=== PATIENT | female | born 1975 | race Caucasian/White ===

== ENCOUNTER → 2016-05-12 | Outpatient (CLI) | payer BC ==
--- NOTE | 2016-05-13 07:22 | US ---
EXAMINATION TYPE: US transvaginal DATE OF EXAM: 05/12/2016 4:30 PM COMPARISON: 03/27/2016 CLINICAL HISTORY: N83.20 Prev L Ovarian Cyst. 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 Uterus: Anteverted Heterogeneous 2. Endometrium: wnl 3. Right Ovary: Probable functional ovarian cyst 1.3 x 0.5 x 1.5 cm 4. Left Ovary: wnl, previous cyst resolved 5. Bilateral Adnexa: wnl 6. Posterior cul-de-sac: wnl IMPRESSION: 1. Resolution of previously noted left ovarian cyst. 2. Probable functional right ovarian cyst as noted.
== END | disposition home or self-care (01) ==
LOC: RADUSWWP 16:15
PROVIDERS: ATTEND Obstetrics & Gynecology
DX: N83.202 Unspecified ovarian cyst, left side (principal)
CPT/HCPCS: 76830

== ENCOUNTER → 2018-04-05 | Outpatient (CLI) | payer BC ==
--- NOTE | 2018-04-05 13:12 | MM ---
Reason for exam: screening (asymptomatic). Last mammogram was performed 2 years ago. History: Taking hormonal contraceptives for 3 years beginning at age 40. Physical Findings: A clinical breast exam by your physician is recommended on an annual basis and results should be correlated with mammographic findings. MG 3D Screening Mammo W/Cad Bilateral CC and MLO view(s) were taken. Prior study comparison: April 17, 2016, bilateral MG screening mammo w CAD. March 05, 2015, bilateral MG screening mammo w CAD. The breast tissue is extremely dense which could obscure a lesion on mammography. Finding: There are typically benign circumscribed round circumscribed stable low density masses in both breasts. No suspicious abnormality. No significant changes in finding since April 17, 2016 and March 05, 2015. ASSESSMENT: Benign, BI-RAD 2 RECOMMENDATION: Routine screening mammogram of both breasts in 1 year.
== END | disposition home or self-care (01) ==
LOC: RADMAMWWP 09:15
PROVIDERS: ATTEND Obstetrics & Gynecology
DX: Z12.31 Encounter for screening mammogram for malignant neoplasm of breast (principal)
CPT/HCPCS: 77063; 77067

== ENCOUNTER → 2019-10-12 | Outpatient (CLI) | payer BC ==
--- NOTE | 2019-10-13 13:32 | MM ---
Reason for exam: screening (asymptomatic). Last mammogram was performed 1 year and 6 months ago. History: Taking hormonal contraceptives for 3 years beginning at age 40. Physical Findings: A clinical breast exam by your physician is recommended on an annual basis and results should be correlated with mammographic findings. MG 3D Screening Mammo W/Cad Bilateral CC and MLO view(s) were taken. Prior study comparison: April 05, 2018, bilateral MG 3d screening mammo w/cad. April 17, 2016, bilateral MG screening mammo w CAD. The breast tissue is extremely dense which could obscure a lesion on mammography. No significant changes when compared with prior studies. ASSESSMENT: Benign, BI-RAD 2 RECOMMENDATION: Routine screening mammogram of both breasts in 1 year.
== END | disposition home or self-care (01) ==
LOC: RADMAMWWP 10:55
PROVIDERS: ATTEND Obstetrics & Gynecology
DX: Z12.31 Encounter for screening mammogram for malignant neoplasm of breast (principal)
CPT/HCPCS: 77063; 77067

== ENCOUNTER → 2021-01-27 | Outpatient (CLI) | payer BC ==
--- NOTE | 2021-01-28 11:41 | MM ---
Reason for exam: screening (asymptomatic). Last mammogram was performed 1 year and 4 months ago. History: Took hormonal contraceptives for 5 years beginning at age 40. Physical Findings: A clinical breast exam by your physician is recommended on an annual basis and results should be correlated with mammographic findings. MG 3D Screening Mammo W/Cad Bilateral CC and MLO view(s) were taken. Prior study comparison: October 12, 2019, bilateral MG 3d screening mammo w/cad. April 05, 2018, bilateral MG 3d screening mammo w/cad. April 17, 2016, bilateral MG screening mammo w CAD. The breast tissue is heterogeneously dense. This may lower the sensitivity of mammography. There is no discrete abnormality. ASSESSMENT: Negative, BI-RAD 1 RECOMMENDATION: Routine screening mammogram of both breasts in 1 year.
== END | disposition home or self-care (01) ==
LOC: RADMAMWWP 10:53
PROVIDERS: ATTEND Obstetrics & Gynecology
DX: Z12.31 Encounter for screening mammogram for malignant neoplasm of breast (principal)
CPT/HCPCS: 77063; 77067

== ENCOUNTER 2021-03-08 14:47 | Emergency (ER) | payer BC ==
[2021-03-08 15:48] VITALS: RESP 20
[2021-03-08] MEDS ORDERED: SODIUM CHLORIDE 0.9% 1,000 ML IV STA (16:07)
[2021-03-08] MEDS ORDERED: ACETAMINOPHEN TAB 500 MG TAB PO STA (16:07)
--- NOTE | 2021-03-08 16:11 | ED ---
General Adult HPI - General Chief complaint: Upper Respiratory Infection Stated complaint: COVID-19 infection Time Seen by Provider: 03/08/21 15:54 Source: patient, RN notes reviewed Mode of arrival: ambulatory Limitations: no limitations - History of Present Illness Initial comments: Patient is a pleasant 45-year-old female presenting to the emergency department with COVID-19 infection. Patient did have symptoms for one week now. Patient had positive test Wednesday and Wednesday of this week. Patient has extreme fatigue. Mild cough. Patient has congestion. Loss of taste loss of smell. Decreased appetite. No nausea or vomiting or diarrhea. No dyspnea. No history of chronic lung problems. - Related Data Allergies Allergy/AdvReac Type Severity Reaction Status Date / Time Sulfa (Sulfonamide Allergy Unknown Verified 03/08/21 15:49 Antibiotics) Review of Systems ROS Statement: Those systems with pertinent positive or pertinent negative responses have been documented in the HPI. ROS Other: All systems not noted in ROS Statement are negative. Constitutional: Reports: fever, chills Eyes: Denies: eye pain ENT: Denies: ear pain Respiratory: Reports: cough Cardiovascular: Denies: chest pain Endocrine: Denies: fatigue Gastrointestinal: Denies: abdominal pain Genitourinary: Denies: dysuria Musculoskeletal: Denies: back pain Skin: Denies: rash Neurological: Denies: weakness Past Medical History Past Medical History: Hypertension, Thyroid Disorder History of Any Multi-Drug Resistant Organisms: None Reported Past Surgical History: Section, Tonsillectomy Past Psychological History: No Psychological Hx Reported Smoking Status: Never smoker Past Alcohol Use History: None Reported Past Drug Use History: None Reported General Exam Limitations: no limitations General appearance: alert, in no apparent distress Head exam: Present: normocephalic Eye exam: Present: normal appearance Respiratory exam: Present: normal lung sounds bilaterally Cardiovascular Exam: Present: tachycardia GI/Abdominal exam: Present: soft. Absent: tenderness Extremities exam: Present: normal inspection. Absent: calf tenderness Neurological exam: Present: alert Psychiatric exam: Present: normal affect, normal mood Skin exam: Present: normal color Course Vital Signs 03/08/21 15:46 Temperature 99.7 F H Pulse Rate 120 H Respiratory 20 Rate Blood Pressure 120/76 O2 Sat by Pulse 96 Oximetry Medical Decision Making - Medical Decision Making Patient is interested in and will receive monoclonal antibodies. Disposition Clinical Impression: COVID-19 Disposition: HOME SELF-CARE Condition: Stable Instructions (If sedation given, give patient instructions): Fever in Adults (ED), Coronavirus Disease 2019 (COVID-19) Additional Instructions: Tylenol as needed for fever or chills. Lady-iij-yewzsee vitamin C, vitamin D, and zinc. Melatonin may help at bedtime. Continue to quarantiene per CDC guidelines. Return for difficulty breathing, not tolerating fluids, worsening symptoms or other concerns Is patient prescribed a controlled substance at d/c from ED?: No Referrals: Macarena Deras MD [Primary Care Provider] - 1-2 days Time of Disposition: 16:11
[2021-03-08] MEDS ORDERED: SODIUM CHLORIDE 0.9% 50 ML IVPB ONE (16:45)
[2021-03-08] MEDS ORDERED: BAMLANIVIMAB (EUA) 700 MG, ETESEVIMAB (EUA) 1,400 MG in SODIUM CHLORIDE 0.9% 50 ML IVPB ONE (16:45)
[2021-03-08 18:41] VITALS: BP 130/87; PULSE 101; TEMP 99
== END 2021-03-08 18:48 | disposition home or self-care (01) ==
LOC: EC 14:47
DX: U07.1 COVID-19 (principal); I10 Essential (primary) hypertension; E07.9 Disorder of thyroid, unspecified; Z88.2 Allergy status to sulfonamides; Z90.89 Acquired absence of other organs
CPT/HCPCS: 99283; 96365; J3490

== ENCOUNTER → 2022-07-13 | Outpatient (CLI) | payer BC ==
--- NOTE | 2022-07-14 08:01 | MM ---
Reason for Exam: Screening (asymptomatic). Last mammogram was performed 1 year(s) and 5 month(s) ago. Patient History: Menarche at age 12. First Full-Term at age 24. Hormonal Contraceptives for 5 years from age 40 until age 45. Risk Values: Brit 5 year model risk: 1.0%. NCI Lifetime model risk: 10.3%. Prior Study Comparison: 04/05/2018 Bilateral Screening Mammogram, [facility]. 10/12/2019 Bilateral Screening Mammogram, [facility]. 01/27/2021 Bilateral Screening Mammogram, [facility]. Tissue Density: The breast tissue is heterogeneously dense. This may lower the sensitivity of mammography. Findings: Analyzed By CAD. There is no suspicious group of microcalcifications or new suspicious mass in either breast. Overall Assessment: Negative, BI-RAD 1 Management: Screening Mammogram of both breasts in 1 year. A clinical breast exam by your physician is recommended on an annual basis and results should be correlated with mammographic findings. Electronically signed and approved by: Jean Garcia M.D. Radiologis
== END | disposition home or self-care (01) ==
LOC: RADMAMWWP 12:37
PROVIDERS: ATTEND Obstetrics & Gynecology
DX: Z12.31 Encounter for screening mammogram for malignant neoplasm of breast (principal)
CPT/HCPCS: 77063; 77067

== ENCOUNTER → 2023-11-03 | Outpatient (CLI) | payer BC ==
--- NOTE | 2023-11-07 15:01 | MM ---
Reason for Exam: Screening (asymptomatic). Last mammogram was performed 1 year(s) and 4 month(s) ago. Patient History: Menarche at age 12. First Full-Term at age 24. Patient has history of breast feeding. Hormonal Contraceptives for 5 years from age 40 until age 45. Last menstrual period: 01/06/2023 Risk Values: Brit 5 year model risk: 1.0%. NCI Lifetime model risk: 10.0%. Prior Study Comparison: 10/12/2019 Bilateral Screening Mammogram, [facility]. 01/27/2021 Bilateral Screening Mammogram, [facility]. 07/13/2022 Bilateral MG 3D screening mammo w/cad, [facility]. Tissue Density: The breasts are heterogeneously dense, which may obscure small masses. Findings: Analyzed By CAD. The pattern is symmetrical. Pattern is stable. No significant interval changes. No suspicious groups of microcalcifications, spiculated or lobular masses, architectural distortion or other secondary signs of malignancy are mammographically apparent. Overall Assessment: Benign, BI-RAD 2 Management: Screening Mammogram of both breasts in 1 year. A negative mammogram report should not preclude additional follow up of suspicious palpable abnormalities. Patient should continue monthly self breast exam. A clinical breast exam by your physician is recommended on an annual basis and results should be correlated with mammographic findings. Note on Brit scores and lifetime risk: 1. A Brit score greater than 3% is considered moderate risk. If this is the case, consider specialist referral to assess eligibility for a risk reducing agent. 2. If overall lifetime risk for the development of breast cancer is 20% or higher, the patient may qualify for future screening with alternating mammogram and breast MRI. Electronically signed and approved by: Logan Melgar D.O. Radiologis
== END | disposition home or self-care (01) ==
LOC: RADMAMWWP 10:03
PROVIDERS: ATTEND Family Medicine
DX: Z12.31 Encounter for screening mammogram for malignant neoplasm of breast (principal); R92.333 Mammographic heterogeneous density, bilateral breasts
CPT/HCPCS: 77063; 77067

== ENCOUNTER → 2024-07-25 | Outpatient (CLI) | payer BC | END | disposition home or self-care (01) | LOC: LABWHC1 16:02 | PROVIDERS: ATTEND Obstetrics & Gynecology | DX: Z53.9 Procedure and treatment not carried out, unspecified reason (principal) ==

== ENCOUNTER → 2024-07-25 | Outpatient (CLI) | payer BC ==
[2024-07-25 15:25] VITALS: BP 144/88; PULSE 102; RESP 16; TEMP 98.2
--- NOTE | 2024-07-25 17:28 | P.HPOB ---
History of Present Illness H&P Date: 07/25/24 Chief Complaint: The patient is here for her routine gynecologic exam. This is a 48-year-old G3, P3 with an LNMP of January 2023. The patient is here to establish with this office. She previously saw Dr. Guillory for her gynecologic care. Her last appointment with him was about 1 year ago. She has been using condoms for control. She states her menstrual periods were spacing out and her last normal period was in January 2023. She went for just over 1 year without any vaginal bleeding, but then had vaginal spotting for 3 days in February 2024. She has not had any bleeding since then. States she does have significant hot flashes and has had them for a couple of years. She wonders if she still needs to actively prevent or if she can discontinue this because of the menopausal change. She does use Estroven for menopausal symptoms and this does seem to help her. She states that she previously had frequent UTIs and was treated with postcoital nitrofurantoin which has been helpful. She states she has not had UTIs since starting that regimen and would like to continue using the this. Review of Systems The patient has gained 2 pounds over the last year. She denies respiratory, cardiac, or G.I. problems. Past Medical History Past Medical History: Hypertension, Thyroid Disorder Additional Past Medical History / Comment(s): History of Graves' disease and is status post radioactive iodine treatment in 2009 with resulting hypothyroidism. Tachycardia with exertion. 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 Medications and Allergies Home Medications Medication Instructions Recorded Confirmed Type L.acidoph,Paracasei, B.lactis 1 each PO DAILY 07/25/24 07/25/24 History [Probiotic] Levothyroxine Sodium [Synthroid] 50 mcg PO DAILY 07/25/24 07/25/24 History Liothyronine Sodium 25 mcg PO DAILY 07/25/24 07/25/24 History Loratadine [Claritin] 10 mg PO DAILY 07/25/24 07/25/24 History Losartan Potassium 25 mg PO DAILY 07/25/24 07/25/24 History Metoprolol Tartrate 25 mg PO DAILY 07/25/24 07/25/24 History Mv-Mn/Iron/Folic/K1/Herbal 352 1 each PO DAILY 07/25/24 07/25/24 History [Alive Women's Multivitamin Tab] Soy Isofla/Blk Cohosh/Mag Bark 155 mg PO DAILY 07/25/24 07/25/24 History [Estroven 155 mg Capsule] Allergies Allergy/AdvReac Type Severity Reaction Status Date / Time Sulfa (Sulfonamide Allergy Unknown Verified 07/25/24 15:01 Antibiotics) Exam Vital Signs Temp Pulse Resp BP Pulse Ox 07/25/24 15:15 98.2 F 102 H 16 144/88 98 Intake and Output 07/25/24 07/25/24 07/25/24 06:59 14:59 22:59 Other: Weight 81.647 kg Height 5 feet 4 inches, weight 180 pounds, BMI 30.9. This is a well-developed well-nourished white female who is alert and oriented times 3 in no acute distress. HEENT: Within normal limits. NECK: Supple without mass or thyromegaly. CHEST AND LUNGS: Clear to auscultation. HEART: Mild tachycardia with regular rhythm. BREASTS: Are without mass or discharge. AXILLARY EXAM: Negative for adenopathy. BACK: Negative for CVA tenderness. ABDOMEN: Soft, nontender, without palpable masses. PELVIC EXAM: Normal external genitalia. Cervix and vagina appear normal. There is no unusual discharge. There is no evidence of prolapse. The uterus is midposition, nongravid size and nontender. There are no palpable adnexal masses or tenderness. RECTAL EXAM: Rectovaginal exam is negative for mass or tenderness and is negative for occult blood. EXTREMITIES: Nontender. IMPRESSION: 1. 48-year-old perimenopausal female with brief spotting after 13 months of amenorrhea. Differential diagnosis will include borderline ovarian function with increasing oligomenorrhea versus small postmenopausal bleeding after 12 months of amenorrhea. 2. Currently using condoms for control. 3. Vasomotor symptoms related to the perimenopause. She has been using Estroven rnha-sog-tsopwbs supplement which has had some beneficial effect for her. 4. History of frequent UTIs and has used postcoital Macrobid to prevent UTIs for several years. PLAN: 1. Pap smear cotest was performed. 2. Self breast awareness was discussed with the patient. We have also discussed symptoms associated with inflammatory breast cancer. 3. Screening mammogram will be due in October 2024. The order slip was given to the patient for this. 4. FSH and estradiol will be used to determine if she is fully menopausal and also to help determine if she still needs to actively prevent . Order slip was given to the patient for this. She will have the blood drawn after she has stopped using the Estroven for at least 7 days. 5. Pelvic ultrasound was recommended to determine endometrial thickness. The order slip was given to the patient for this. 6. We have discussed her use of nitrofurantoin to prevent UTIs. She has used postcoital nitrofurantoin to prevent UTIs for many years. We have discussed the option of having a trial off of nitrofurantoin to see if she again develops frequent UTIs. She would like to continue using postcoital nitrofurantoin. I have recommended that she use nitrofurantoin 50 mg x 1 after each active sexual intercourse. Electronic prescription will be sent to [facility] pharmacy in [place]. 7. Colorectal cancer screening has been done with [facility] through her PCP. 8. She was advised to return in one year for her annual well woman exam and as needed.
== END ==
LOC: WWCWWP 14:43
PROVIDERS: ATTEND Obstetrics & Gynecology
DX: Z01.419 Encounter for gynecological examination (general) (routine) without abnormal findings (principal); N95.1 Menopausal and female climacteric states; Z88.2 Allergy status to sulfonamides; Z88.1 Allergy status to other antibiotic agents; Z87.440 Personal history of urinary (tract) infections

== ENCOUNTER → 2024-08-09 | Outpatient (CLI) | payer BC ==
[2024-08-09 18:34] LABS: Estradiol <20.0 pg/mL
[2024-08-09 19:44] LABS: Follicle Stimulating Hormone 71.9 mIU/mL
--- NOTE | 2024-08-09 20:57 | US ---
EXAMINATION TYPE: US pelvis complete transvag DATE OF EXAM: 08/09/2024 COMPARISON: NONE CLINICAL INDICATION: Female, 48 years old with history of N950 PMB; Patient's cycle stopped in 2022, she had 3 days of bleeding Feb 2024, no bleeding since, no pain, h/o TECHNIQUE: TA/TV. Transabdominal grayscale sonographic images of the pelvis were acquired. Transvaginal sonographic im ages Doppler imaging: Not performed. FINDINGS: Date of LMP: 2022 EXAM MEASUREMENTS: Uterus: 8.4 x 4.4 x 3.4cm Endometrial Stripe: 0.2-0.3cm Right Ovary: 1.8 x 1.5 x 1.3cm Left Ovary: 2.2 x 1.7 x 2.2cm 1. Uterus: Anteverted wnl 2. Endometrium: wnl 3. Right Ovary: wnl - not seen on Tv approach - bowel gas 4. Left Ovary: wnl- not seen on Tv approach - bowel gas 5. Bilateral Adnexa: wnl 6. Posterior cul-de-sac: wnl IMPRESSION: No suspicious pelvic ultrasound changes. O-RADS 2021 [email or web address] [email or web address], , 08/09/2024 8:55 PM
== END | disposition home or self-care (01) ==
LOC: RADUSWWP 14:58
PROVIDERS: ATTEND Obstetrics & Gynecology
DX: N95.0 Postmenopausal bleeding (principal); N91.4 Secondary oligomenorrhea
CPT/HCPCS: 76830; 76856; 82670; 83001